=== PATIENT | male | born 2000 | race Caucasian/White ===

== ENCOUNTER 2024-01-02 16:27 | Emergency (ER) | payer BC, SELFPAY ==
[2024-01-02 16:33] VITALS: BP 142/80
--- NOTE | 2024-01-02 18:02 | ED.GENMED ---
History of Present Illness
General
Chief Complaint: Musculo-Skeletal Complaint
Time Seen by Provider: 01/02/24 17:24
History of Present Illness
History of Present Illness:
23-year-old male presents to the emergency department for evaluation of bruising and swelling to the left ring finger sustained in a flag football game 3 days ago. Occurred while attempting to pull a flag of another player. Has been wearing a
splint but pain has been increasing
Review of Systems
Review of Systems
Allergies reviewed?: Yes
All Other Systems: ROS reviewed and negative except as documented in HPI and ROS
Phy Exam
Physical Exam
Physical Exam:
GEN: Well appearing, NAD, WDWN
HEENT: Oral mucosa moist, no scleral icterus
Cardiac: Regular rate
Lung: No respiratory distress, no tachypnea
MSK: Ecchymosis and deformity to the distal aspect of the left ring finger, full extension is noted however patient cannot flex
Skin: Good color, no pallor or jaundice, no rashes
Neuro: AO x3, moves all extremities freely
Psych: Calm, cooperative
Course
Orders/Labs/Results
Orders:
Orders
01/02/24 16:30
CR Finger(s)/thumb Min 2 Vw Lt Urgent
Comment:
Reason For Exam: Injury
Indicate Which Finger:: Ring Finger
Vital Signs
Initial and Last Documented VS:
Initial Vital Signs
Temp Pulse Resp BP Pulse Ox
97.4 F 71 18 142/80 98
01/02/24 16:33 01/02/24 16:33 01/02/24 16:33 01/02/24 16:33 01/02/24 16:33
Last Documented Vital Signs
Temp Pulse Resp BP Pulse Ox
97.4 F 71 18 142/80 98
01/02/24 16:33 01/02/24 16:33 01/02/24 16:33 01/02/24 16:33 01/02/24 16:33
MDM/Problems Addressed
MDM/Problems Addressed:
Placed the finger in extension stack splints, recommend outpatient hand orthopedic follow-up
*Critical Care Note
Total Time (30-74mins, 75-104mins- exclusive of procedures): Not Applicable
ED Attending Note
-
Portions of this chart may have been created with voice recognition software.� Occasional wrong word or��sound alike� substitutions may have occurred due to the inherent limitations of voice recognition software.
Discharge Plan
Departure
Patient Disposition: Home (Routine Discharge)
Date of Disposition: 01/02/24
Time of Disposition: 18:04
Patient with high blood pressure during this ER visit?: No
Discharge Problem:
Displaced fracture of distal phalanx of left ring finger
Instructions: Finger Fracture ED
Referrals:
Yvan Alvares MD [Active] -
Activity Restrictions/Additional Instructions:
Keep splint on until orthopedic follow up
Interventions
Interventions:
*Risk Screen - Suicide Last Done: 01/02/24 18:00
*General Assessment Last Done: 01/02/24 18:00
*Neglect/Abuse Screening Last Done: 01/02/24 18:00
*ED COVID-19 Vaccine History Last Done: 01/02/24 18:00
*Nursing Disposition Last Done: 01/02/24 18:06
ED-Musculoskeletal Assessment Last Done: 01/02/24 18:00
Discharge Date and Time
Discharge Date/Time: 01/02/24 20:44
Print Language: [id number]
== END 2024-01-02 20:44 | disposition home or self-care (01) ==
LOC: EMR 16:27
PROVIDERS: EMERGENCY PHYSICIAN Student in an Organized Health Care Education/Training Program
DX: S62.635A Displaced fracture of distal phalanx of left ring finger, initial encounter for closed fracture (principal); X58.XXXA Exposure to other specified factors, initial encounter; Y93.62 Activity, american flag or touch football
CPT/HCPCS: 29130; 99283; 73140